=== PATIENT | female | born 2000 | race Caucasian/White ===

== ENCOUNTER 2019-10-21 13:49 | Emergency (ER) | payer SELFPAY ==
[~2019-10-21] VITALS: Ht 170.2 cm; Wt 63.6 kg
[2019-10-21 14:05] VITALS: BP 131/73; PULSE 65; TEMP 98
== END 2019-10-21 15:13 | disposition left against medical advice (07) ==
LOC: COL.ER 13:49
DX: T76.21XA Adult sexual abuse, suspected, initial encounter (principal)

== ENCOUNTER 2019-10-23 16:24 | Outpatient (CLI) | payer SELFPAY | END 2019-10-23 19:00 | disposition home or self-care (01) | LOC: LDRO 16:24 → COL.ER 16:24 → EDSTATUS 16:32 → LDRO 19:00 | DX: Z04.41 Encounter for examination and observation following alleged adult rape (principal) ==

== ENCOUNTER 2022-02-02 18:46 | Emergency (ER) | payer SELFPAY ==
[2022-02-02] MEDS ORDERED: PREDNISONE20 MG PO (20:17)
== END 2022-02-02 18:55 | disposition left against medical advice (07) ==
LOC: COL.ER 18:46
DX: Z72.89 Other problems related to lifestyle (principal)

== ENCOUNTER 2022-02-02 19:22 | Emergency (ER) | payer SELFPAY ==
[~2022-02-02] VITALS: Ht 170.2 cm; Wt 86.4 kg
[2022-02-02 19:35] VITALS: BP 132/84; PULSE 66; TEMP 97.9
[2022-02-02] MEDS ORDERED: PREDNISONE20 MG PO (20:17)
== END 2022-02-02 20:25 | disposition home or self-care (01) ==
LOC: COL.ER 19:22
DX: M79.641 Pain in right hand (principal); W60.XXXA Contact with nonvenomous plant thorns and spines and sharp leaves, initial encounter